=== PATIENT | female | born 1955 | race Caucasian/White ===

== ENCOUNTER 2021-02-07 09:23 | Outpatient (CLI) | payer MEDICARE, SELFPAY ==
--- NOTE | 2021-02-07 09:30 | XR_ITS ---
WS: [email or web address] XR KUB [id number] REASON FOR EXAM: Stones FINDINGS: A cluster of multiple renal calculi are seen overlying the upper pole of the right kidney with a maxi mum diameter of the largest calculus 4 to 5 mm. This is unchanged compared to previous examination of 09/16/2018. There are small renal calculi overlying the lower pole of the left kidney. These finding s are unchanged compared to the previous examination of 09/16/2018. No other interval change or new finding is identified. XR/XR KUB [id number] IMPRESSION: Bilateral intrarenal calculi with no interval change.
== END 2021-02-07 09:24 | disposition home or self-care (01) ==
PROVIDERS: PCP Family Medicine; Visit Provider Urology
DX: N20.9 Urinary calculus, unspecified (principal)
CPT/HCPCS: 74018; 81003

== ENCOUNTER 2021-08-12 09:16 | Outpatient (CLI) | payer MEDICARE, SELFPAY ==
--- NOTE | 2021-08-12 09:15 | XRR_ITS ---
PROCEDURE INFORMATION: Exam: XR Abdomen Exam date and time: 08/12/2021 9:15 AM Age: 65 years old Clinical indication: Condition or disease; Kidney or ureter condition; Calculus (stone) in kidney; Patient HX: History--kidney stone follow up; HX of stones in bilateral kidneys; Additional info: Renal stones TECHNIQUE: Imaging protocol: XR of the abdomen. Views: Frontal supine view of the abdomen. 1 View. COMPARISON: HI XR KUB [id number] 02/07/2021 9:43 AM FINDINGS: Gastrointestinal tract: Normal. No bowel dilation. Organs: Multiple calcified densities projecting over the upper right and lower left kidney are unchanged and consistent with renal calculi. No definite ureteral calculus. Vasculature: Calcifications in the pelvis are unchanged and consistent with phleboliths. Bones/joints: Curvature and degenerative changes of the lumbar spine. XR/XR KUB [id number] IMPRESSION: 1. Stable bilateral renal calculi. No definite ureteral calculus visualized.
== END 2021-08-12 09:17 | disposition home or self-care (01) ==
LOC: RAD 09:19
PROVIDERS: PCP Family Medicine; Visit Provider Urology
DX: N20.0 Calculus of kidney (principal)
CPT/HCPCS: 74018; 81003

== ENCOUNTER 2021-11-11 09:03 | Outpatient (CLI) | payer MEDICARE, SELFPAY ==
--- NOTE | 2021-11-11 09:15 | MM_ITS ---
WS: [email or web address] Exam: [place] [id number] Date/Time of Exam: 11/11/2021 9:24 AM Reason For Exam: SCREENING VIEWS: MLO and CC views both breasts. Comparison made with prior exam of 12/25/2015 and 07/29/2017. Findings: There was no sign of mass, architectural distortion or suspicious calcification in either breast. Sc attered fibroglandular densities MM/[place] [id number] Impression: BI-RADS: 2-Benign FOLLOW-UP: 1 Year Follow-up This mammogram was also analyzed by the Computer Aided Detection System R2 Imag e Leather Splitter.
== END 2021-11-11 09:04 | disposition home or self-care (01) ==
PROVIDERS: PCP Family Medicine; Visit Provider Family Medicine
DX: Z12.31 Encounter for screening mammogram for malignant neoplasm of breast (principal)
CPT/HCPCS: 77067

== ENCOUNTER 2022-02-11 09:17 | Outpatient (CLI) | payer MEDICARE, SELFPAY ==
--- NOTE | 2022-02-11 09:30 | XR_ITS ---
WS: [id number] KUB, AP view, 02/11/2022 Clinical Data: calcium urolithiasis Comparison: KUB, 08/12/2021. Findings: No abnormal intraabdominal masses are seen. There is no dilatated small bowel or evidence of obstruct ion. There are calcifications overlying both kidneys unchanged. There are phleboliths in the true pelvis. 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 There is a moderate amount of fecal material throughout the colon. XR/XR KUB [id number] Impression: No change in bilateral renal calculi.
== END 2022-02-11 09:18 | disposition home or self-care (01) ==
LOC: RAD 09:19
PROVIDERS: PCP Family Medicine; Visit Provider Urology
DX: N20.9 Urinary calculus, unspecified (principal)
CPT/HCPCS: 74018; 81003

== ENCOUNTER 2023-02-10 09:26 | Outpatient (CLI) | payer MEDICARE, SELFPAY ==
--- NOTE | 2023-02-10 09:40 | XR_ITS ---
WS: [email or web address] EXAMINATION: XR KUB [id number] REASON FOR EXAM: Bilateral Renal Stone COMPARISON: 02/11/2022 ORDER DATE: 02/10/2023 9:45 AM FINDINGS: No abnormal intraabdominal masses are seen. There is no dilatated small bowel or evidence of obstruction. There are calcifications overlying both kidneys unchanged. There are phleboliths in the true pelvis. There is a levoscoliosis with osteoarthritis and marked narrowing of the lower lumbar interve rtebral discs. There is a moderate amount of fecal material throughout the colon. XR/XR KUB [id number] Impression: No change in bilateral renal calculi.
== END 2023-02-10 09:27 | disposition home or self-care (01) ==
LOC: RAD 09:31
PROVIDERS: PCP Family Medicine; Visit Provider Urology
DX: N20.0 Calculus of kidney (principal)
CPT/HCPCS: 74018; 81003; 99213

== ENCOUNTER → 2023-07-08 14:56 | Outpatient (BNVA) | payer MEDICARE, SELFPAY | PROVIDERS: PCP Family Medicine; Visit Provider Dermatology | DX: D48.5 Neoplasm of uncertain behavior of skin (principal); L57.0 Actinic keratosis; D18.01 Hemangioma of skin and subcutaneous tissue; L64.8 Other androgenic alopecia | CPT/HCPCS: 11102; 17000; 99203 ==

== ENCOUNTER → 2024-03-29 14:57 | Outpatient (BNVA) | payer MEDICARE, SELFPAY | PROVIDERS: PCP Family Medicine; Visit Provider Nurse Practitioner Family | DX: L57.0 Actinic keratosis (principal); L98.8 Other specified disorders of the skin and subcutaneous tissue; L82.1 Other seborrheic keratosis; D18.01 Hemangioma of skin and subcutaneous tissue; L81.4 Other melanin hyperpigmentation | CPT/HCPCS: 99213 ==

== ENCOUNTER 2024-04-25 11:10 | Outpatient (CLI) | payer MEDICARE, SELFPAY ==
--- NOTE | 2024-04-25 11:16 | XR_ITS ---
WS: [email or web address] XR cervical spine 3V* [id number] REASON FOR EXAM: CERVICAL SPINAL STENOSIS FINDINGS: No previous examination for comparison. Mild straightening of the normal lordosis of the cervical spine. Anterior plate and screw fixation with interbody fusion devices C3-C6. Surgical appliances are intact and in proper position and alignment. Moderate narrowing of the C2-C3 disc space with mild anterior and uncinate osteophytosis. Moderate narrowing of the C6-C7 disc space with mild anterior and uncinate osteophytosis. Moderate degenerative arthropathy in the facet joints C6-C7. No significant listhesis. XR/XR cervical spine 3V* [id number] IMPRESSION: Anterior cervical fusion as above. Degenerative spondylosis as above.
== END 2024-04-25 11:11 | disposition home or self-care (01) ==
LOC: RAD 11:12
PROVIDERS: PCP Family Medicine; Visit Provider Nurse Practitioner Family
DX: M48.02 Spinal stenosis, cervical region (principal); M43.22 Fusion of spine, cervical region; M47.892 Other spondylosis, cervical region
CPT/HCPCS: 72040

== ENCOUNTER 2024-07-21 10:03 | Outpatient (CLI) | payer MEDICARE, SELFPAY ==
--- NOTE | 2024-07-21 10:12 | XR_ITS ---
WS: [email or web address] Exam: XR cervical spine 3V* [id number] Date/Time of Exam: 07/21/2024 10:17 AM Reason For Exam: ARTHRODESIS PRESENT Comparison 04/25/2024. Operative fusion of the C-spine extends from C3-C6 with disc spacers. The fusion remains in good alig nment. No sign of hardware failure. Facet arthropathy at all levels. Paraspinal soft tissues are unre markable. The odontoid is intact. Disc degeneration at C6-7 and C7-T1. Narrowing of the C2-3 disc als o. XR/XR cervical spine 3V* [id number] IMPRESSION: 1. Stable appearing anterior fusion from C3-C6. No hardware complication noted. 2. Moderately advanced degenerative changes as detailed above.
== END 2024-07-21 10:04 | disposition home or self-care (01) ==
LOC: RAD 10:06
PROVIDERS: PCP Family Medicine; Visit Provider Nurse Practitioner Family
DX: Z98.1 Arthrodesis status (principal); M50.323 Other cervical disc degeneration at C6-C7 level
CPT/HCPCS: 72040

== ENCOUNTER 2024-11-08 11:26 | Outpatient (CLI) | payer MEDICARE, SELFPAY ==
--- NOTE | 2024-11-08 11:39 | XRR_ITS ---
PROCEDURE INFORMATION: Exam: XR Abdomen Exam date and time: 11/08/2024 11:43 AM Age: 68 years old Clinical indication: Condition or disease; Kidney or ureter condition; Calculus (stone) in kidney; Prior surgery; Surgery date: <1 month; Surgery type: Stent for kidney stones inserted x3 weeks ago, lithotripsy TECHNIQUE: Imaging protocol: Radiologic exam of the abdomen. Views: Frontal supine view of the abdomen. 1 View. COMPARISON: CR XR KUB [id number] 02/10/2023 9:49 AM FINDINGS: Diaphragm: Mild elevation of the right hemidiaphragm. Gastrointestinal tract: Normal. No bowel dilation. Organs: New well formed right double-J ureteral stent projecting in satisfactory position. A few small calculi lined up alongside the stent in the distal right ureter. Several small bilateral renal calculi are unchanged. No other obvious renal or ureteral calculi. Vasculature: Unchanged calcified phleboliths in the pelvis. Bones/joints: Unchanged moderate scoliosis. Unchanged spondylosis. Otherwise, unremarkable. XR/XR KUB [id number] IMPRESSION: 1. New well formed right double-J ureteral stent projecting in satisfactory position. A few small calculi lined up alongside the stent in the distal right ureter. 2. Several small bilateral renal calculi are unchanged. 3. Mild elevation of the right hemidiaphragm. 4. Additional details as above.
== END 2024-11-08 11:27 | disposition home or self-care (01) ==
LOC: RAD 11:32
PROVIDERS: PCP Family Medicine; Visit Provider Urology
DX: N20.0 Calculus of kidney (principal); M41.86 Other forms of scoliosis, lumbar region; M47.814 Spondylosis without myelopathy or radiculopathy, thoracic region; Z96.0 Presence of urogenital implants
CPT/HCPCS: 74018

== ENCOUNTER 2025-01-16 10:36 | Outpatient (CLI) | payer MEDICARE, SELFPAY ==
--- NOTE | 2025-01-16 10:46 | XRR_ITS ---
PROCEDURE INFORMATION: Exam: XR Abdomen Exam date and time: 01/16/2025 10:51 AM Age: 69 years old Clinical indication: Condition or disease; Kidney or ureter condition; Calculus (stone) in kidney; Prior surgery; Surgery date: 6+ months; Surgery type: Nephrolithiasis bilat; Additional info: Bilateral nephrolithiasis TECHNIQUE: Imaging protocol: Radiologic exam of the abdomen. Views: Frontal supine view of the abdomen. 1 View. COMPARISON: CR XR KUB [id number] 11/08/2024 11:43 AM FINDINGS: Gastrointestinal tract: There is no obvious bowel obstruction or free air on this plain radiographic examination with the patient in the supine position. Normal stool burden. Organs: Unchanged 5 mm x 3 mm calculus lower left kidney. Vasculature: Several small calcifications in the pelvis are likely to be phleboliths. However, in the proper clinical setting a distal ureteral calculus may need to be considered. Bones/joints: Moderate lumbar scoliosis convex to the left. Mild-severe multilevel spondylosis. Mild bilateral hip arthritis. Otherwise, unremarkable. XR/XR KUB [id number] IMPRESSION: 1. Unchanged 5 mm x 3 mm calculus lower left kidney. 2. Several small calcifications in the pelvis are likely to be phleboliths. However, in the proper clinical setting a distal ureteral calculus may need to be considered.
== END 2025-01-16 10:37 | disposition home or self-care (01) ==
LOC: RAD 10:41
PROVIDERS: PCP Family Medicine; Visit Provider Urology
DX: N20.0 Calculus of kidney (principal); R93.89 Abnormal findings on diagnostic imaging of other specified body structures; M41.86 Other forms of scoliosis, lumbar region; M47.899 Other spondylosis, site unspecified; M16.0 Bilateral primary osteoarthritis of hip
CPT/HCPCS: 74018

== ENCOUNTER 2025-01-25 12:37 | Outpatient (CLI) | payer MEDICARE, SELFPAY ==
--- NOTE | 2025-01-25 12:45 | MM_ITS ---
WS: [email or web address] BILATERAL 3D TOMOSYNTHESIS DIGITAL SCREENING MAMMOGRAPHY WITH CAD CLINICAL INFORMATION: SCREENING HISTORY: Screening mammogram. No current complaints. COMPARISON: 2020 TECHNIQUE: Bilateral CC and MLO views. FINDINGS: Scattered fibroglandular densities bilaterally. No suspicious focal mass, asymmetry, calcifications, or architectural distortion. No evidence of malignancy. Vascular calcification. MM/MM scr tomosynthesis [id number] IMPRESSION: DENSITY: There are scattered areas of fibroglandular density. BI-RADS: 2 - Benign. FOLLOW UP: 1 Year Follow-up Recommend return to annual screening mammography.
== END 2025-01-25 12:38 | disposition home or self-care (01) ==
PROVIDERS: PCP Family Medicine; Visit Provider Family Medicine
DX: Z12.31 Encounter for screening mammogram for malignant neoplasm of breast (principal); R92.323 Mammographic fibroglandular density, bilateral breasts; R92.1 Mammographic calcification found on diagnostic imaging of breast
CPT/HCPCS: 77063; 77067

== ENCOUNTER → 2025-02-06 12:58 | Outpatient (BNVA) | payer MEDICARE, SELFPAY | PROVIDERS: PCP Family Medicine; Visit Provider Nurse Practitioner Women's Health | DX: Z01.419 Encounter for gynecological examination (general) (routine) without abnormal findings (principal) | CPT/HCPCS: 87624 ==

== ENCOUNTER → 2025-03-29 09:48 | Outpatient (BNVA) | payer MEDICARE, SELFPAY | PROVIDERS: PCP Family Medicine; Visit Provider Nurse Practitioner Family | DX: D18.01 Hemangioma of skin and subcutaneous tissue (principal); L81.4 Other melanin hyperpigmentation; L57.8 Other skin changes due to chronic exposure to nonionizing radiation; X32.XXXA Exposure to sunlight, initial encounter; L82.1 Other seborrheic keratosis; Z12.83 Encounter for screening for malignant neoplasm of skin | CPT/HCPCS: 99213 ==